=== PATIENT | male | born 1990 | race American Indian/Alaskan Native ===

== ENCOUNTER 2018-12-19 06:24 | Emergency (ER) | payer SELFPAY ==
[2018-12-19 06:53] VITALS: BP 132/90
[2018-12-19] MEDS ORDERED: BANOPHEN PO ONE (07:25)
[2018-12-19] MEDS ORDERED: DECADRON IM ONE (07:25)
[2018-12-19] MEDS ORDERED: PEPCID PO ONE (07:26)
--- NOTE | 2018-12-19 07:26 | Emergency Department Report ---
Minor Respiratory - HPI Chief Complaint: Laceration/Recheck/Suture Stated Complaint: ALLERGIC REACTION Time Seen by Provider: 12/19/18 07:12 Duration: 1 Day Severity: moderate Minor Respiratory: Yes Able to Tolerate Fluids, No Rhinorrhea, No Sore Throat, No Ear Pain, No Cough, No Sick Contacts, No Hemoptysis, No Chest Pain, No Shortness of Breath, No Fever Other History: Patient is a 28-year-old male who comes to the ER with lip swelling after drinking wine. He denies known allergies. His upper lip is swollen. He denies trauma. He reports only taking trazodone and Celexa which he has been on for some time for PTSD. He denies any known allergies. He states he's never had this happen before. ABCs are intact. Lungs are clear there is no wheezing. ED Review of Systems ROS: Stated complaint: ALLERGIC REACTION Other details as noted in HPI Comment: All other systems reviewed and negative Constitutional: denies: chills Eyes: denies: eye pain ENT: as per HPI. denies: ear pain, throat pain Respiratory: denies: cough, orthopnea, SOB with exertion Cardiovascular: denies: dyspnea on exertion Endocrine: denies: flushing Gastrointestinal: denies: nausea Genitourinary: denies: urgency Musculoskeletal: denies: back pain Skin: denies: rash Neurological: denies: as per HPI Psychiatric: denies: depression ED Past Medical Hx - Past Medical History Previous Medical History?: Yes Hx Psychiatric Treatment: Yes (PTSD) - Surgical History Past Surgical History?: No - Social History Smoking Status: Current Every Day Smoker Substance Use Type: Alcohol - Medications Home Medications: Home Medications Medication Instructions Recorded Confirmed Last Taken Type Famotidine [Pepcid] 20 mg PO DAILY #5 tablet 12/19/18 Unknown Rx diphenhydrAMINE [Benadryl CAP] 25 mg PO Q12H #8 capsule 12/19/18 Unknown Rx predniSONE [Deltasone] 20 mg PO DAILY #5 tablet 12/19/18 Unknown Rx Minor Respiratory Exam - Exam General: Vital signs noted. No distress. Alert and acting appropriately. HEENT: Yes Moist Mucous Membranes, No Pharyngeal Erythema, No Pharyngeal Exuda etta, No Rhinorrhea, No Conjuctival Injection, No Frontal Tenderness, No Maxillary Tenderness Ear: Neither TM Bulge, Neither TM Erythema, Neither EAC Pain, Neither EAC Discharge Neck: Yes Supple, No Adenopathy Lungs: Yes Good Air Exchange, No Wheezes, No Ronchi, No Stridor, No Cough, No Labored Respirations, No Retractions, No Use of Accessory Muscles, No Other Abnormal Lung Sounds Heart: Yes Regular, No Murmur Abdomen: Yes Normal Bowel Sounds, No Tenderness, No Peritoneal Signs Skin: Yes Edema (upper lip), No Rash Neurologic: Alert and oriented, no deficits. Musculoskeletal: Unremarkable. ED Course Vital Signs 12/19/18 06:50 Temperature 98.4 F Pulse Rate 65 Respiratory 22 Rate Blood Pressure 132/90 O2 Sat by Pulse 100 Oximetry ED Medical Decision Making - Medical Decision Making Patient medicated with Benadryl, steroids and antihistamine. Saturation is 100% on room air. He has no difficulty breathing he is taking by mouth fluids. Will discharge patient home with medications for his allergic reaction and follow up with an veterans service representative Critical care attestation.: If time is entered above; I have spent that time in minutes in the direct care of this critically ill patient, excluding procedure time. ED Disposition Clinical Impression: Allergic reaction Disposition: DC-01 TO HOME OR SELFCARE Is pt being admited?: No Does the pt Need Aspirin: No Condition: Stable Instructions: Allergies (ED) Additional Instructions: take meds as instructed today follow up with pcp or veterans service representative referral below avoid wine pay attention to what you are eating that is now causing allergies ervin grapes - such as in wine return to ER if difficult to breath diet and activity as tolerated Referrals: MALIK PEREIRA MD [Primary Care Provider] - 3-5 Days JACK GONZALEZ MD [Referring] - 3-5 Days Time of Disposition: 07:56
== END 2018-12-19 09:02 | disposition home or self-care (01) ==
LOC: ED 06:24
DX: T78.40XA Allergy, unspecified, initial encounter (principal); F43.10 Post-traumatic stress disorder, unspecified; F17.200 Nicotine dependence, unspecified, uncomplicated; Y92.89 Other specified places as the place of occurrence of the external cause
CPT/HCPCS: 99282; J1100; Q0163

== ENCOUNTER 2020-02-26 18:36 | Emergency (ER) | payer SELFPAY ==
[2020-02-26 18:50] VITALS: BP 119/68
--- NOTE | 2020-02-26 20:30 | Emergency Department Report ---
ED N/V/D HPI - General Chief complaint: Nausea/Vomiting/Diarrhea Stated complaint: FEVER/FITIGUE/SOB Time Seen by Provider: 02/26/20 20:01 Source: patient Mode of arrival: Ambulatory Limitations: No Limitations - History of Present Illness MD complaint: nausea, diarrhea -: Gradual, days(s) (3) Associated Abdominal Pain: Yes Location: diffuse Radiation: none Severity: mild Pain Scale: 3 Quality: other Worsens with: none Associated Symptoms: denies: myalgias, diaphoresis, loss of appetite, nausea/vomiting - Related Data Previous Rx's Medication Instructions Recorded Last Taken Type Famotidine [Pepcid] 20 mg PO DAILY #5 tablet 12/19/18 Unknown Rx diphenhydrAMINE [Benadryl CAP] 25 mg PO Q12H #8 capsule 12/19/18 Unknown Rx predniSONE [Deltasone] 20 mg PO DAILY #5 tablet 12/19/18 Unknown Rx Hyoscyamine Subl [Levsin Sl 0.125 0.125 mg SL Q6HR PRN #20 tab 02/26/20 Unknown Rx TAB] Ondansetron [Zofran Odt] 4 mg PO Q8HR #20 tab.rapdis 02/26/20 Unknown Rx Allergies Allergy/AdvReac Type Severity Reaction Status Date / Time No Known Allergies Allergy Verified 02/26/20 18:48 ED Review of Systems ROS: Stated complaint: FEVER/FITIGUE/SOB Other details as noted in HPI Comment: All other systems reviewed and negative ED Past Medical Hx - Past Medical History Previous Medical History?: Yes Hx Psychiatric Treatment: Yes (PTSD) - Surgical History Past Surgical History?: No - Social History Smoking Status: Current Every Day Smoker Substance Use Type: None - Medications Home Medications: Home Medications Medication Instructions Recorded Confirmed Last Taken Type Famotidine [Pepcid] 20 mg PO DAILY #5 tablet 12/19/18 Unknown Rx diphenhydrAMINE [Benadryl CAP] 25 mg PO Q12H #8 capsule 12/19/18 Unknown Rx predniSONE [Deltasone] 20 mg PO DAILY #5 tablet 12/19/18 Unknown Rx Hyoscyamine Subl [Levsin Sl 0.125 0.125 mg SL Q6HR PRN #20 tab 02/26/20 Unknown Rx TAB] Ondansetron [Zofran Odt] 4 mg PO Q8HR #20 tab.rapdis 02/26/20 Unknown Rx ED Physical Exam - General Limitations: No Limitations General appearance: alert, in no apparent distress - Head Head exam: Present: atraumatic, normocephalic - Eye Eye exam: Present: normal appearance, PERRL, EOMI Pupils: Present: normal accommodation - ENT ENT exam: Present: normal exam, normal orophraynx, mucous membranes moist, TM's normal bilaterally - Neck Neck exam: Present: normal inspection, full ROM - Respiratory Respiratory exam: Present: normal lung sounds bilaterally. Absent: respiratory distress - Cardiovascular Cardiovascular Exam: Present: regular rate, normal rhythm. Absent: systolic mur mur, diastolic murmur, rubs, gallop - GI/Abdominal GI/Abdominal exam: Present: soft, tenderness (Mild diffuse tenderness throughout no rebound. No Rovsing, no Hope Gracia, no Vining sign, no tenderness at McBurney's, no Ledezma sign), normal bowel sounds - Rectal Rectal exam: Present: deferred - Extremities Exam Extremities exam: Present: normal inspection - Back Exam Back exam: Present: normal inspection - Neurological Exam Neurological exam: Present: alert, oriented X3 - Psychiatric Psychiatric exam: Present: normal affect, normal mood - Skin Skin exam: Present: warm, dry, intact, normal color. Absent: rash ED Course Vital Signs 02/26/20 02/26/20 18:48 22:50 Temperature 99.3 F Pulse Rate 96 H 78 Respiratory 18 18 Rate Blood Pressure 119/68 [Right] O2 Sat by Pulse 96 100 Oximetry ED Medical Decision Making - Lab Data Result diagrams: 02/26/20 21:11 02/26/20 21:11 - EKG Data Interpretation: no acute changes - Medical Decision Making This patient presents with abdominal pain of unclear etiology. Acute abdominal x-ray series was performed evaluate for potential causes of the abdominal pain, however, neither the clinical exam, history nor the imaging has identified an emergent etiology for the abdominal pain. I have a very low suspicion for appendicitis, ischemic bowel, bowel perforation, or any other life threatening disease. I have discussed with the patient the level of uncertainty with undif ferentiated abdominal pain and clearly explained the need to follow-up as noted on the discharge instructions, or return to the Emergency Department immediately if the pain worsens, develops fever, persistent and uncontrollable vomiting, or for any new symptoms or concerns. Mr. Beltran pain is resolved patient is hungry requesting to eat understand the plan feels comfortable with discharge labs and imaging all normal Critical care attestation.: If time is entered above; I have spent that time in minutes in the direct care of this critically ill patient, excluding procedure time. ED Disposition Clinical Impression: Abdominal pain, Diarrhea Disposition: DC-01 TO HOME OR SELFCARE Is pt being admited?: No Does the pt Need Aspirin: No Condition: Stable Instructions: Gastroenteritis (ED), Acute Nausea and Vomiting (ED), Food Poisoning (ED) Prescriptions: Hyoscyamine Subl [Levsin Sl 0.125 TAB] 0.125 mg SL Q6HR PRN #20 tab PRN Reason: abdminal pain Ondansetron [Zofran Odt] 4 mg PO Q8HR #20 tab.jt Referrals: GAURI AYALA MD [Staff Physician] - 3-5 Days
[2020-02-26 21:22] LABS: Hematocrit 41.4 % (35.5-45.6); Hemoglobin 14.2 gm/dl (11.8-15.2); Mean Corpuscular HGB Conc 34 % (32-34); Mean Corpuscular Volume 91 fl (84-94); Platelet Count 199 K/mm3 (140-440); Red Blood Count 4.55 M/mm3 (3.65-5.03); Red Cell Distribution Width 13.8 % (13.2-15.2)
[2020-02-26 21:44] LABS: Alanine Aminotransferase 27 units/L (7-56); Albumin 3.6 g/dL (3.9-5); BUN/Creatinine Ratio 14; Blood Urea Nitrogen 14 mg/dL (9-20); Calcium 8.9 mg/dL (8.4-10.2); Hemolysis Index 29
[2020-02-26 21:45] LABS: Bilirubin,Direct < 0.2 mg/dL (0-0.2)
--- NOTE | 2020-02-26 22:00 | XRay Report ---
ACUTE ABDOMINAL SERIES 02/26/2020 INDICATION / CLINICAL INFORMATION: constipation abd pain. COMPARISON: None available. FINDINGS: The abdominal and pelvic bowel gas pattern is normal. No evidence of pneumoperitoneum. The cupping chest x-ray shows no acute disease. Signer Name: Mikey Montaño MD Signed: 02/26/2020 9:56 PM Workstation Name: [id number]
[2020-02-26 22:14] LABS: Basophils % (Manual) 0 % (0.0-1.8); Eosinophils % (Manual) 0 % (0.0-4.3); RBC Morphology Normal; Total Cells Counted 100
== END 2020-02-26 22:50 | disposition home or self-care (01) ==
LOC: ED 18:36
DX: R10.84 Generalized abdominal pain (principal); R19.7 Diarrhea, unspecified; F43.10 Post-traumatic stress disorder, unspecified; F17.200 Nicotine dependence, unspecified, uncomplicated; Z79.899 Other long term (current) drug therapy
CPT/HCPCS: 36415; 74022; 80048; 80076; 83690; 85007; 85025; 99283